=== PATIENT | male | born 1985 | race Caucasian/White ===

== ENCOUNTER 2020-08-30 12:20 | Emergency (ER) | payer SELFPAY ==
[2020-08-30] MEDS ORDERED: Diphtheria,Pertussis(Acell),Tetanus Vaccine 0.5 ML Syringe IM ONE (12:38)
--- NOTE | 2020-08-30 12:44 | EDM.PDOC ---
ED HPI GENERAL MEDICAL PROBLEM - General Chief Complaint: Bite:Animal, Insect Stated Complaint: DOG BITE Time Seen by Provider: 08/30/20 12:29 Source of Information: Reports: Patient, Family (spouse) History Limitations: Reports: No Limitations - History of Present Illness INITIAL COMMENTS - FREE TEXT/NARRATIVE: 34-year-old male of [place] descent presents to the ED after suffering a dog bite to the right hand. He states it is the next-door neighbors dog and he is familiar with a dog. For some reason the dog lunged at him today and bit him on the right hand. He has suffered a puncture wound to the thenar eminence which is 4 mm x 3 mm x 3 mm in size i.e. like a triangle. I debrided the wound of tissue and fat. He has ecchymoses to the dorsal aspect of his right hand over the third meta carpal primarily. He has full range of motion of his hand and ability to make a good fist with no evidence of a bony injury. He is unsure when his last tetanus diphtheria and pertussis vaccine was given. Onset: Today, Sudden Onset Date: 08/30/20 Onset Time: 12:10 Duration: Minutes: Location: Reports: Upper Extremity, Right (Dog bite to right hand.) Quality: Reports: Ache, Throbbing Severity: Moderate Improves with: Reports: Rest Worsens with: Reports: Movement Context: Reports: Trauma (Dog bite with puncture wound over the thenar eminence of the right hand contusion to the dorsal aspect of the right hand). Denies: Activity, Exercise (Certain movements make the pain worse.), Lifting, Sick Contact Associated Symptoms: Reports: No Other Symptoms Treatments [employer]: Reports: Other (see below) (None.) - Related Data Allergies Allergy/AdvReac Type Severity Reaction Status Date / Time No Known Allergies Allergy Verified 08/30/20 12:30 Home Meds: Home Meds Amoxicillin/Potassium Clav [Augmentin 500-125 Tablet] 1 each PO BID #12 tablet 08/30/20 [Rx] Past Medical History HEENT History: Reports: None Cardiovascular History: Reports: None Respiratory History: Reports: None Gastrointestinal History: Reports: None Genitourinary History: Reports: None Musculoskeletal History: Reports: None Neurological History: Reports: None Psychiatric History: Reports: None Endocrine/Metabolic History: Reports: None Hematologic History: Reports: None Immunologic History: Reports: None Oncologic (Cancer) History: Reports: None Dermatologic History: Reports: None - Infectious Disease History Infectious Disease History: Reports: None Social & Family History - Family History Family Medical History: No Pertinent Family History - Tobacco Use Tobacco Use Status *Q: Never Tobacco User - Caffeine Use Caffeine Use: Reports: Coffee - Recreational Drug Use Recreational Drug Use: No - Living Situation & Occupation Living situation: Reports: Occupation: Employed ED ROS GENERAL - Review of Systems Review Of Systems: See Below Constitutional: Denies: Fever, Chills, Malaise, Weakness, Fatigue, Decreased Appetite, Weight Loss HEENT: Reports: No Symptoms Respiratory: Reports: No Symptoms Cardiovascular: Reports: No Symptoms Endocrine: Reports: No Symptoms GI/Abdominal: Reports: No Symptoms : Reports: No Symptoms Musculoskeletal: Reports: No Symptoms Skin: Reports: Other (Puncture wound thenar eminence right hand measuring 4 mm x 3 mm x 3 mm in a triangular fashion. There is been avulsion of skin from this area.) Neurological: Reports: No Symptoms Psychiatric: Reports: No Symptoms Hematologic/Lymphatic: Reports: No Symptoms Immunologic: Reports: No Symptoms ED EXAM, ANIMAL BITE - Physical Exam Exam: See Below Exam Limited By: No Limitations General Appearance: Alert, WD/WN, Anxious, Mild Distress, Other (Patient is anxious as he has a fear of needles. Temperature is 36.8. Heart rate 86 in sinus respiratory is 18 with O2 sats of 97%. BP 03/25/1976) Eye Exam: Bilateral Eye: Normal Inspection (No scleral icterus or blepharal pallor.) Extremities: Other (Examination was limited to his right hand. Patient has a puncture wound to the thenar eminence of the right hand which is triangular in shape. It measures 4 mm x 3 mm x 3 mm in shape. There is been avulsion of the skin from the mid aspect of the wound. Fatty tissue was protruding from the wound) Neurological: Alert ( he has a contusion with ecchymoses over the third metatarsal dorsal aspect of the right hand but is able to make a full fist with no signs of bony injury.), Oriented, CN II-XII Intact, Normal Cognition Psychiatric: Normal Affect, Normal Mood, Anxious Skin Exam: Normal Color (Mildly anxious), Warm/Dry, Other (Puncture wound from dog bite over the thenar eminence of the right hand as described above) Course - Vital Signs Last Recorded V/S: Last Vital Signs Temp 36.8 C 08/30/20 12:32 Pulse 86 08/30/20 12:32 Resp 18 08/30/20 12:32 BP 117/77 08/30/20 12:32 Pulse Ox 97 08/30/20 12:32 - Orders/Labs/Meds Orders: Active Orders 24 hr Category Date Time Status Vaccines to be Administered [RC] PER UNIT ROUTINE Care 08/30/20 12:38 Active Meds: Medications Discontinued Medications Generic Name Dose Route Start Last Admin Trade Name Freq PRN Reason Stop Dose Admin Diphtheria/Tetanus/Acell Pertussis 0.5 ml 08/30/20 12:38 08/30/20 12:48 Diphtheria,Pertussis(Acell),Tetanus Vaccine 0.5 Ml Syringe IM 08/30/20 12:39 0.5 ml .ONCE ONE Administration - Radiology Interpretation Free Text/Narrative:: 34-year-old male presents to the ED after suffering a dog bite from a great Kyler whom is the neighbors dog that noon today. He suffered a puncture wound to the thenar eminence of his right hand that is triangular in shape measuring 4 mm x 3 mm x 3 mm. There is been avulsion of the skin from the middle of the wound. I debrided the skin and adipose tissue from the wound. The wound was ir rigated thoroughly under tap water. He will have to heal by primary intention. Topical antibiotic will be placed and dressing applied to the hand. His tetanus diphtheria pertussis vaccine will be updated today since he cannot member his last vaccine. He will be placed on Augmentin 500/1 two 5 mg tabs twice daily for the next 6 days to prevent secondary wound infection. He will return to the ED if any further signs of infection occur. Departure - Departure Time of Disposition: 12:38 Disposition: Home, Self-Care 01 Condition: Fair Clinical Impression: Dog bite of right hand Qualifiers: Encounter type: initial encounter Qualified Code(s): S61.451A - Open bite of right hand, initial encounter - Discharge Information *PRESCRIPTION DRUG MONITORING PROGRAM REVIEWED*: Not Applicable *COPY OF PRESCRIPTION DRUG MONITORING REPORT IN PATIENT SUSAN: Not Applicable Prescriptions: Amoxicillin/Potassium Clav [Augmentin 500-125 Tablet] 1 each PO BID #12 tablet Instructions: Animal Bite, Adult, [id number] Referrals: PCP,None [Primary Care Provider] - Forms: ED Department Discharge Additional Instructions: Evaluation in the emergency room today in regards to a dog bite to the right hand. It appears that this was a relatively unprovoked attacked by the dog which you state is a great Kyler and that you have been familiar with in the past. Puncture wound to the volar aspect of your hand as resulted in open wound measuring 4 mm x 3 mm x 3 mm in a triangular fashion. I debrided the tissue and fat from the wound. It will be left open to heal by primary intention. Treatment at home is to daily cleanse the wound with soap and water. Showering is okay. Then apply topical antibiotic such as bacitracin or Polysporin to the wound once daily and cover with a bandage to keep clean. Able to take this wound approximately 12 to 14 days to heal incompletely. You will need to take antibiotic Augmentin 500/1 2 5 mg tablet twice daily for the next 6 days to prevent secondary wound infection as dogs carry many bacteria on their teeth that became impregnated underneath the skin from the bite. Your tetanus diphtheria pertussis vaccine will also be updated today and is good for the next 10 years Sepsis Event Note (ED) - Evaluation Sepsis Screening Result: No Definite Risk - Focused Exam Vital Signs: Vital Signs Temp Pulse Resp BP Pulse Ox 08/30/20 12:32 36.8 C 86 18 117/77 97 - My Orders Last 24 Hours: My Active Orders 08/30/20 12:38 Vaccines to be Administered [RC] PER UNIT ROUTINE - Assessment/Plan Last 24 Hours: My Active Orders 08/30/20 12:38 Vaccines to be Administered [RC] PER UNIT ROUTINE
== END 2020-08-30 13:09 | disposition home or self-care (01) ==
LOC: JD.ED 12:20
DX: S61.451A Open bite of right hand, initial encounter (principal); Z23 Encounter for immunization; W54.0XXA Bitten by dog, initial encounter
CPT/HCPCS: 90471; 90715; 99283